=== PATIENT | male | born 1965 | race Caucasian/White ===

== ENCOUNTER 2021-03-10 07:01 | Observation (INO) | payer BC, OTHER ==
[2021-03-10] MEDS ORDERED: Aspirin 81 MG Tab.Chew PO ONE (07:26)
[2021-03-10] MEDS: Sodium Chloride 0.9% 10 ML Syringe FLUSH PRN ×2 (07:32→08:28)
[2021-03-10] MEDS ORDERED: Sodium Chloride 0.9% 10 ML Syringe FLUSH PRN (07:54)
--- NOTE | 2021-03-10 08:03 | EDM.PDOC ---
ED HPI GENERAL MEDICAL PROBLEM - General Chief Complaint: Chest Pain Stated Complaint: RT SIDE CHEST PAIN Time Seen by Provider: 03/10/21 07:41 Source of Information: Reports: Patient, Family History Limitations: Reports: No Limitations - History of Present Illness INITIAL COMMENTS - FREE TEXT/NARRATIVE: Patient presents with acute onset of chest pain started last night about 5:00. Sharp pain that was worse with laying flat worse with breathing occasional dry [place] cough at times felt clammy with it, hard to find a composition was able to sleep some but was very restless last night. Never had anything like this before not associated with any fevers chills or sweats no fainting spell no history of any underlying lung disease has a brother that of heart disease mother of heart disease but she was in her 80s, father of pancreatic cancer. No history of any smoking. Patient had Covid infection last year but not this year. Not associated with any vomiting but does have some slight nausea then eating anything. No gassy bloated belching no abdominal pain normal bowel movement no burning pain or blood in the urine no testicle pain. Feels like her ribs out. He then also to states that he is noted acute onset of swelling of left lower extremity. No fall trauma or injury never had a history of DVT or blood clots. He did have a knee replacement in the past but no other surgeries. Duration: Day(s): Severity: Moderate Improves with: Reports: Rest Worsens with: Reports: Breathing Associated Symptoms: Reports: Chest Pain, Cough, Diaphoresis, Loss of Appetite, Shortness of Breath. Denies: Fever/Chills, Headaches, Weakness Right Chest Pain Score (Numeric/FACES): 5 - Related Data Allergies Allergy/AdvReac Type Severity Reaction Status Date / Time No Known Allergies Allergy Verified 03/10/21 07:14 Home Meds: Home Meds . [No Known Home Meds] 03/10/21 [History] Past Medical History - Past Health History Medical/Surgical History: Denies Medical/Surgical History Social & Family History - Tobacco Use Tobacco Use Status *Q: Never Tobacco User Second Hand Smoke Exposure: No - Caffeine Use Caffeine Use: Reports: Coffee - Alcohol Use Days Per Week of Alcohol Use: 2 Number of Drinks Per Day: 2 Total Drinks Per Week: 4 - Recreational Drug Use Recreational Drug Use: No ED ROS GENERAL - Review of Systems Review Of Systems: See Below Constitutional: Reports: Diaphoresis, Decreased Appetite. Denies: Fever, Chills, Malaise, Weakness HEENT: Denies: Rhinitis, Throat Pain Respiratory: Reports: Shortness of Breath, Pleuritic Chest Pain, Cough Cardiovascular: Reports: Chest Pain, Dyspnea on Exertion, Lightheadedness. Den ies: Blood Pressure Problem, Orthopnea, Palpitations, PND, Syncope GI/Abdominal: Reports: Decreased Appetite, Nausea. Denies: Abdominal Pain, Diarrhea, Vomiting : Denies: Discharge, Dysuria, Flank Pain, Frequency, Hematuria, Pain Musculoskeletal: Reports: Other (For lower extremity swelling from the foot all the way up to the thigh). Denies: Neck Pain, Arm Pain, Back Pain Skin: Reports: No Symptoms Neurological: Reports: No Symptoms. Denies: Dizziness, Headache, Numbness, Paresthesia, Pre-Existing Deficit Psychiatric: Reports: No Symptoms ED EXAM, GENERAL - Physical Exam Exam: See Below Exam Limited By: No Limitations General Appearance: Alert, WD/WN, No Apparent Distress Throat/Mouth: Normal Inspection, Normal Lips, Normal Teeth Head: Atraumatic, Normocephalic Neck: Normal Inspection, Supple, Non-Tender, Full Range of Motion. No: Lymphadenopathy (L), Lymphadenopathy (R) Respiratory/Chest: No Respiratory Distress, Lungs Clear, Normal Breath Sounds, No Accessory Muscle Use, Other (Does have some pain on the right side with deep inspiration no rubs noted) Cardiovascular: Normal Peripheral Pulses, Regular Rate, Rhythm, No Murmur, No Rub, JVD Peripheral Pulses: 2+: Carotid (L), Carotid (R), Radial (L), Radial (R) GI/Abdominal: Normal Bowel Sounds, Soft, Non-Tender Back Exam: Normal Inspection, Full Range of Motion, Other (Old right trapezius tenderness). No: CVA Tenderness (L), CVA Tenderness (R) Extremities: Normal Range of Motion, Non-Tender, Normal Capillary Refill, Leg Pain (Lower extremity swollen and somewhat tender) Neurological: Alert, Oriented, CN II-XII Intact, No Motor/Sensory Deficits Psychiatric: Normal Affect, Normal Mood Skin Exam: Warm, Dry #1 Interpretation EKG Date: 03/10/21 Rhythm: NSR [place]: Normal QRS: Normal ST-T: Other QT: Normal (Reviewed EKG showing sinus rhythm rate of 78 DC 166 QRS is 95 QT corrected 428 patient has repolarization changes in the lateral leads otherwise some abnormal R wave progression no acute ischemic changes are noted.) Course - Vital Signs Last Recorded V/S: Last Vital Signs Temp 96.9 F 03/10/21 07:11 Pulse 84 03/10/21 07:11 Resp 15 03/10/21 07:11 BP 135/88 03/10/21 07:11 Pulse Ox 98 03/10/21 07:41 - Orders/Labs/Meds Orders: Active Orders 24 hr Category Date Time Status Cardiac Monitoring [RC] . DIRECTED Care 03/10/21 07:27 Active Communication Order [RC] ASDIRECTED Care 03/10/21 07:27 Active Communication Order [RC] ASDIRECTED Care 03/10/21 07:27 Active Oxygen Therapy [RC] ASDIRECTED Care 03/10/21 07:27 Active Peripheral IV Care [RC] . DIRECTED Care 03/10/21 07:27 Active Peripheral IV Care [RC] . DIRECTED Care 03/10/21 07:55 Ordered Sodium Chloride 0.9% [Normal Saline] 100 ml Med 03/10/21 08:15 Ordered IV ASDIRECTED Sodium Chloride 0.9% [Saline Flush] Med 03/10/21 07:26 Active 10 ml FLUSH ASDIRECTED PRN Sodium Chloride 0.9% [Saline Flush] Med 03/10/21 07:54 Ordered 10 ml FLUSH ASDIRECTED PRN Peripheral IV Insertion Adult [OM.PC] Stat Oth 03/10/21 07:27 Ordered Peripheral IV Insertion Adult [OM.PC] Stat Oth 03/10/21 07:55 Ordered Medication Orders Sodium Chloride (Normal Saline) 100 mls @ 60 mls/hr IV ASDIRECTED SCOTT Last Admin: 03/10/21 08:19 Dose: 60 mls/hr Documented by: Sodium Chloride (Sodium Chloride 0.9% 10 Ml Syringe) 10 ml FLUSH ASDIRECTED PRN PRN Reason: Keep Vein Open Last Admin: 03/10/21 07:32 Dose: 10 ml Documented by: BELINDA Sodium Chloride (Sodium Chloride 0.9% 10 Ml Syringe) 10 ml FLUSH ASDIRECTED PRN PRN Reason: Keep Vein Open Last Admin: 03/10/21 08:54 Dose: 10 ml Documented by: Labs: Laboratory Tests 03/10/21 03/10/21 03/10/21 Range/Units 07:10 07:10 07:10 WBC 11.25 H (4.23-9.07) K/mm3 RBC 4.69 (4.63-6.08) M/mm3 Hgb 13.3 L (13.7-17.5) gm/dl Hct 40.3 (40.1-51.0) % MCV 85.9 (79.0-92.2) fl MCH 28.4 (25.7-32.2) pg MCHC 33.0 (32.2-35.5) g/dl RDW Std Deviation 39.9 (35.1-43.9) fL Plt Count 332 (163-337) K/mm3 MPV 10.2 (9.4-12.3) fl Neut % (Auto) 77.5 H (34.0-67.9) % Lymph % (Auto) 10.9 L (21.8-53.1) % Bacon % (Auto) 8.8 (5.3-12.2) % Eos % (Auto) 2.3 (0.8-7.0) Baso % (Auto) 0.3 (0.1-1.2) % Neut # (Auto) 8.72 H (1.78-5.38) K/mm3 Lymph # (Auto) 1.23 L (1.32-3.57) K/mm3 Bacon # (Auto) 0.99 H (0.30-0.82) K/mm3 Eos # (Auto) 0.26 (0.04-0.54) K/mm3 Baso # (Auto) 0.03 (0.01-0.08) K/mm3 PT 10.8 (9.7-12.0) SECONDS INR 0.97 D-Dimer, Quantitative 6.03 H (0.19-0.50) mg/L Sodium 137 (136-145) mEq/L Potassium 4.4 (3.5-5.1) mEq/L Chloride 98 (98-107) mEq/L Carbon Dioxide 28 (21-32) mEq/L Anion Gap 15.4 H (5-15) BUN 18 (7-18) mg/dL Creatinine 1.2 (0.7-1.3) mg/dL Est Cr Clr Drug Dosing 80.45 mL/min Estimated GFR (MDRD) > 60 (>60) mL/min BUN/Creatinine Ratio 15.0 (14-18) Glucose 128 H (70-99) mg/dL Calcium 9.0 (8.5-10.1) mg/dL Magnesium 1.8 (1.8-2.4) mg/dL Total Bilirubin 0.6 (0.2-1.0) mg/dL AST 21 (15-37) U/L ALT 33 (16-63) U/L Alkaline Phosphatase 102 (46-116) U/L Troponin I < 0.017 (0.00-0.056) ng/mL C-Reactive Protein (<1.0) mg/dL Total Protein 7.5 (6.4-8.2) g/dl Albumin 3.6 (3.4-5.0) g/dl Globulin 3.9 gm/dL Albumin/Globulin Ratio 0.9 L (1-2) Influenza Type A RNA (NEGATIVE) Influenza Type B RNA (NEGATIVE) SARS-CoV-2 RNA (ANDREEA) (NEGATIVE) 03/10/21 03/10/21 Range/Units 07:10 07:41 WBC (4.23-9.07) K/mm3 RBC (4.63-6.08) M/mm3 Hgb (13.7-17.5) gm/dl Hct (40.1-51.0) % MCV (79.0-92.2) fl MCH (25.7-32.2) pg MCHC (32.2-35.5) g/dl RDW Std Deviation (35.1-43.9) fL Plt Count (163-337) K/mm3 MPV (9.4-12.3) fl Neut % (Auto) (34.0-67.9) % Lymph % (Auto) (21.8-53.1) % [place] % (Auto) (5.3-12.2) % Eos % (Auto) (0.8-7.0) Baso % (Auto) (0.1-1.2) % Neut # (Auto) (1.78-5.38) K/mm3 Lymph # (Auto) (1.32-3.57) K/mm3 [place] # (Auto) (0.30-0.82) K/mm3 Eos # (Auto) (0.04-0.54) K/mm3 Baso # (Auto) (0.01-0.08) K/mm3 PT (9.7-12.0) SECONDS INR D-Dimer, Quantitative (0.19-0.50) mg/L Sodium (136-145) mEq/L Potassium (3.5-5.1) mEq/L Chloride (98-107) mEq/L Carbon Dioxide (21-32) mEq/L Anion Gap (5-15) BUN (7-18) mg/dL Creatinine (0.7-1.3) mg/dL Est Cr Clr Drug Dosing mL/min Estimated GFR (MDRD) (>60) mL/min BUN/Creatinine Ratio (14-18) Glucose (70-99) mg/dL Calcium (8.5-10.1) mg/dL Magnesium (1.8-2.4) mg/dL Total Bilirubin (0.2-1.0) mg/dL AST (15-37) U/L ALT (16-63) U/L Alkaline Phosphatase (46-116) U/L Troponin I (0.00-0.056) ng/mL C-Reactive Protein 16.2 H* (<1.0) mg/dL Total Protein (6.4-8.2) g/dl Albumin (3.4-5.0) g/dl Globulin gm/dL Albumin/Globulin Ratio (1-2) Influenza Type A RNA Negative (NEGATIVE) Influenza Type B RNA Negative (NEGATIVE) SARS-CoV-2 RNA (ANDREEA) Negative (NEGATIVE) White blood cell count 11,250 hemoglobin 13.3 medical 40 platelet count is 332,077% neutrophils INR 0.97 D-dimer 6 blood sodium is 137 potassium 4.4 chloride 98 CO2 is 28 anion gap 15.4 glucose is 128 creatinine clearance is 80 liver function tests are normal CRP is 16 troponin is negative influenza and Covid test are negative. Meds: Medications Generic Name Dose Route Start Last Admin Trade Name Freq PRN Reason Stop Dose Admin Sodium Chloride 100 mls @ 60 mls/hr 03/10/21 08:15 03/10/21 08:19 Normal Saline IV 60 mls/hr ASDIRECTED SCOTT Administration Sodium Chloride 10 ml 03/10/21 07:26 03/10/21 08:28 Sodium Chloride 0.9% 10 Ml Syringe FLUSH 10 ml ASDIRECTED PRN Administration Keep Vein Open Sodium Chloride 10 ml 03/10/21 07:54 03/10/21 08:54 Sodium Chloride 0.9% 10 Ml Syringe FLUSH 10 ml ASDIRECTED PRN Administration Keep Vein Open Discontinued Medications Generic Name Dose Route Start Last Admin Trade Name Freq PRN Reason Stop Dose Admin Aspirin 324 mg 03/10/21 07:26 03/10/21 07:32 Aspirin 81 Mg Tab.Chew PO 03/10/21 07:27 324 mg ONETIME ONE Administration Enoxaparin Sodium 120 mg 03/10/21 08:46 03/10/21 08:53 Enoxaparin 120 Mg/0.8 Ml Syringe SUBCUT 03/10/21 08:47 120 mg ONETIME ONE Administration Sodium Chloride 1,000 mls @ 999 mls/hr 03/10/21 08:05 03/10/21 08:28 Normal Saline IV 03/10/21 09:05 999 mls/hr ONETIME ONE Administration Iopamidol 100 ml 03/10/21 08:04 03/10/21 08:19 Iopamidol 755 Mg/Ml 100 Ml Bottle IVPUSH 03/10/21 08:05 100 ml ONETIME ONE Administration Morphine Sulfate 4 mg 03/10/21 08:46 03/10/21 08:52 Morphine 4 Mg/Ml Syringe IVPUSH 03/10/21 08:47 4 mg ONETIME ONE Administration Sodium Chloride 10 ml 03/10/21 08:04 03/10/21 08:19 Sodium Chloride 0.9% 10 Ml Syringe FLUSH 03/10/21 08:05 10 ml ONETIME ONE Administration - Radiology Interpretation Free Text/Narrative:: CT scan results reviewed with the radiologist and shows the filling defects are seen in the distal right main pulmonary artery segmental and subsegmental branches right lower lung compatible with fairly extensive pulmonary emboli thoracic gaiter order is no aneurysm mediastinum is negative pericardial thickening is negative upper abdominal structures are nothing acute patchy increased density right lung base small right-sided pleural effusion mostly impression with extensive right lower pulmonary emboli parenchymal density in the right lower lung base as well as in the left lung base rule out pneumonia small right pleural effusion noted. CT Results Date: 03/10/21 CT Results Time: 07:50 - Re-Assessments/Exams Free Text/Narrative Re-Assessment/Exam: 03/10/21 08:04 Seen examined and evaluated concern for PE acute coronary syndrome cholecystitis ascending cholangitis seems less likely ascending thoracic aorta, doubt aneurysm or dissection, may be pneumonia. Left lower extremity rule out DVT. 03/10/21 08:51 Patient seems to have more pain hard to find a comfortable position still awaiting the ultrasound was given a shot of Lovenox for now. Will decide whether patient may benefit from hospitalization for further evaluation of etiology of DVT PE. His troponin is negative seems less likely heart strain. Signs remain stable. 03/10/21 09:46 Patient does have a lower extremity DVT on the left it does not show a large amount of burden however does show extensive left lower extremity vein thrombosis from the proximal superficial femoral vein continue distal through the posterior tibial and peroneal veins. Does not appear to have any again obvious right heart strain no other labs reviewed with the patient and family at the bedside. Given dose of Lovenox however will start him on Eliquis. 03/10/21 10:22 More discussion with the hospitalist on-call felt the patient would probably benefit from admission and better evaluation. admit the patient have given him a dose of Lovenox for now we will let him assume care for further evaluation and underlying work-up evaluation for his PE DVT. Departure - Departure Time of Disposition: 10:20 Disposition: Admitted As Inpatient 68 Condition: Fair Clinical Impression: Pulmonary embolism on right Referrals: PCP,None [Primary Care Provider] - Forms: ED Department Discharge Sepsis Event Note (ED) - Focused Exam Vital Signs: Vital Signs Temp Pulse Resp BP Pulse Ox Pulse Ox 03/10/21 07:41 98 03/10/21 07:11 96.9 F 84 15 135/88 97 - My Orders Last 24 Hours: My Active Orders 03/10/21 07:26 Sodium Chloride 0.9% [Saline Flush] 10 ml FLUSH ASDIRECTED PRN 03/10/21 07:27 Cardiac Monitoring [RC] . DIRECTED Communication Order [RC] ASDIRECTED Communication Order [RC] ASDIRECTED Oxygen Therapy [RC] ASDIRECTED Peripheral IV Care [RC] . DIRECTED Peripheral IV Insertion Adult [OM.PC] Stat 03/10/21 07:54 Sodium Chloride 0.9% [Saline Flush] 10 ml FLUSH ASDIRECTED PRN 03/10/21 07:55 Peripheral IV Care [RC] . DIRECTED Peripheral IV Insertion Adult [OM.PC] Stat 03/10/21 08:15 Sodium Chloride 0.9% [Normal Saline] 100 ml IV ASDIRECTED - Assessment/Plan Last 24 Hours: My Active Orders 03/10/21 07:26 Sodium Chloride 0.9% [Saline Flush] 10 ml FLUSH ASDIRECTED PRN 03/10/21 07:27 Cardiac Monitoring [RC] . DIRECTED Communication Order [RC] ASDIRECTED Communication Order [RC] ASDIRECTED Oxygen Therapy [RC] ASDIRECTED Peripheral IV Care [RC] . DIRECTED Peripheral IV Insertion Adult [OM.PC] Stat 03/10/21 07:54 Sodium Chloride 0.9% [Saline Flush] 10 ml FLUSH ASDIRECTED PRN 03/10/21 07:55 Peripheral IV Care [RC] . DIRECTED Peripheral IV Insertion Adult [OM.PC] Stat 03/10/21 08:15 Sodium Chloride 0.9% [Normal Saline] 100 ml IV ASDIRECTED
[2021-03-10] MEDS ORDERED: Sodium Chloride 0.9% 10 ML Syringe FLUSH ONE (08:04)
[2021-03-10] MEDS ORDERED: Iopamidol 755 Mg/ML 100 ML Bottle IVPUSH ONE (08:04)
[2021-03-10] MEDS ORDERED: Sodium Chloride 0.9% 1,000 ML IV ONE (08:05)
[2021-03-10] MEDS ORDERED: Sodium Chloride 0.9% 100 ML IV SCH (08:15)
[2021-03-10 08:26] LABS: CORONAVIRUS COVID-19 NAA NEGATIVE (NEGATIVE)
--- NOTE | 2021-03-10 08:33 | CR ---
Chest: Portable view of the chest was obtained. Comparison: No prior chest imaging is available. Heart size and mediastinum are normal. Lungs are clear with no acute parenchymal change. Bony structures show nothing acute. Impression: 1. Nothing acute is seen on portable chest x-ray. Diagnostic code #1
--- NOTE | 2021-03-10 08:40 | CT ---
CT chest Technique: Multiple axial sections were obtained from above the lung apices inferiorly through the lung bases. Intravenous contrast was utilized. Study has been performed as a pulmonary angiogram protocol. Comparison: Chest x-ray performed earlier on the same day (7:39 AM). Findings: Filling defects are seen within the distal right main pulmonary artery, segmental and subsegmental branches of the right lower lung. Findings are compatible with fairly extensive pulmonary emboli within this region. Thoracic aorta shows no aneurysm. Mediastinum shows no adenopathy. No pericardial thickening is seen. No axillary adenopathy is noted. Visualized upper abdominal structures show nothing acute. Lung window settings were reviewed. Patchy increased density is seen within the right lung base. Mild increased density is seen within the left lung base. Small right-sided pleural effusion is also noted. Bone window settings were reviewed. No acute osseous abnormality is appreciated. Impression: 1. Fairly extensive right lower lung pulmonary emboli as described above. 2. Parenchymal density within the right lung base as well as minimal parenchymal density within the left lung base. These findings could relate to pulmonary embolism, please exclude any symptoms of pneumonia. 3. Small right-sided pleural effusion is seen. Diagnostic code #5
[2021-03-10] MEDS ORDERED: Morphine 4 MG/ML Syringe IVPUSH ONE (08:46)
[2021-03-10] MEDS ORDERED: Enoxaparin 120 MG/0.8 ML Syringe SUBCUT ONE (08:46)
--- NOTE | 2021-03-10 09:01 | US ---
Left lower extremity deep venous ultrasound: Duplex and color Doppler evaluation was obtained of the left common femoral, proximal greater saphenous, superficial femoral, popliteal, posterior tibial and peroneal veins. Right common femoral vein was also evaluated. Comparison: Prior CT pulmonary angiogram performed earlier on the same day (8:06 AM), no prior venous imaging is available. Findings: There is intraluminal material being seen within the superficial femoral vein, popliteal vein, posterior tibial vein and peroneal vein. Common femoral veins on both sides are patent. Impression: 1. Extensive left lower extremity deep venous thrombosis from the proximal superficial femoral vein and continuing distally through the posterior tibial and peroneal veins. Diagnostic code #5
--- NOTE | 2021-03-10 11:55 | PCM.HP.2 ---
H&P History of Present Illness - General Date of Service: 03/10/21 Admit Problem/Dx: Admission Diagnosis/Problem Admission Diagnosis/Problem Pulmonary embolism Source of Information: Patient, Old Records, Provider, RN, RN Notes Reviewed, Significant Other History Limitations: Reports: No Limitations - History of Present Illness Initial Comments - Free Text/Narative: This is a 55-year-old male who presents to our ED on the morning of 03-10-2021 with chest pain. He reports this started around 1700 the night before. States it is worse with breathing he does have an occasional dry cough. Denies any fevers, chills, sweats, syncopal episodes, or prior similar episodes. No prior heart or lung conditions. Denies any smoking history. Reports he had Covid infection last year but no issues this year. Reports mild nausea but no vomiting. No abdominal pain, urinary symptoms, or changes in bowel habits. He reports he feels like he has a rib out. He also reports acute onset left lower extremity swelling. No recent trauma. No history of VTE. Reports prior knee replacement but no other surgeries. In the ED twelve-lead EKG was obtained showing a sinus rhythm at 78 bpm with repolarization changes in the lateral leads and abnormal R wave progression. No ischemic changes noted. Temp is 96.9. Pulse 84. Respirations 15. Blood pressure 135/88. Pulse ox 98% on room air. Labs are obtained showing a WBC of 11.25. Hemoglobin 13.3. Platelet 332,000. Neutrophils are elevated at 77.5. PT is 10.8. INR 0.97. D-dimer is very high at 6.03. Sodium 137. Potassium 4.4. Chloride 98. Carbon dioxide 28. Anion gap is 15.4. BUN is 18. Creatinine 1.2. GFR greater than 60. Glucose 128. Calcium 9.0. Magnesium 1.8. Bilirubin 0.6. AST is 21, ALT 33, alkaline phosphatase 102. Troponin less than 0.017. Albumin is 3.6. CRP is elevated at 16.2. Influenza a and B are both negative. SARS-CoV-2 RNA is negative. He is given 324 mg aspirin and 4 mg of morphine. Chest x-ray is obtained showing nothing acute. CTA of the chest is obtained showing fairly extensive right lower lung pulmonary emboli as described above. There is also parenchymal density within the right lung base as well as minimal parenchymal density within the left lung base. These findings could relate to pulmonary embolism, please exclude any symptoms of pneumonia. Small right-sided pleural effusion is also seen. Bilateral lower extremity ultrasound is obtained and shows extensive left lower extremity deep venous thrombosis from the proximal superficial femoral vein and continued distally through the posterior tibial and peroneal veins. He is given 120 mg enoxaparin injection. Denies any past medical history or prior home medications. He is a full code. He does not have a PCP provider. He subsequently admitted to the floor observation status on telemetry for further work-up and monitoring of his PE and DVT. Right Chest Pain Score (Numeric/FACES): 5 - Related Data Allergies/Adverse Reactions: Allergies Allergy/AdvReac Type Severity Reaction Status Date / Time No Known Allergies Allergy Verified 03/10/21 15:04 Home Medications: Home Meds . [No Known Home Meds] 03/10/21 [History] Past Medical History - Past Health History Medical/Surgical History: Denies Medical/Surgical History Social & Family History - Tobacco Use Tobacco Use Status *Q: Never Tobacco User Second Hand Smoke Exposure: No - Caffeine Use Caffeine Use: Reports: Coffee - Alcohol Use Days Per Week of Alcohol Use: 2 Number of Drinks Per Day: 2 Total Drinks Per Week: 4 - Recreational Drug Use Recreational Drug Use: No H&P Review of Systems - Review of Systems: Review Of Systems: See Below General: Reports: No Symptoms. Denies: Fever, Chills, Malaise, Weakness, Fatigue HEENT: Reports: No Symptoms. Denies: Headaches, Visual Changes Pulmonary: Reports: Shortness of Breath, Pleuritic Chest Pain, Cough. Denies: Wheezing, Sputum Cardiovascular: Reports: Chest Pain, Dyspnea on Exertion, Orthopnea, Edema (left lower extremity ). Denies: Palpitations, Syncope, Claudication Gastrointestinal: Reports: No Symptoms. Denies: Abdominal Pain, Constipation, Diarrhea, Hematemesis, Hematochezia, Melena, Nausea, Stool Incontinence, Vomiting Genitourinary: Reports: No Symptoms. Denies: Frequency, Burning, Pain Musculoskeletal: Reports: No Symptoms Skin: Reports: No Symptoms. Denies: Cyanosis Psychiatric: Reports: No Symptoms Neurological: Reports: No Symptoms. Denies: Confusion Hematologic/Lymphatic: Reports: No Symptoms. Denies: Anemia, Easy Bleeding, Easy Bruising Immunologic: Reports: No Symptoms Exam - Exam Exam: See Below - Vital Signs Vital Signs: Last Vital Signs Temp 96.9 F 03/10/21 07:11 Pulse 84 03/10/21 07:11 Resp 15 03/10/21 07:11 BP 135/88 03/10/21 07:11 Pulse Ox 98 03/10/21 07:41 Weight: 280 lb - Exam Quality Assessment: DVT Prophylaxis. No: Supplemental Oxygen, Urinary Catheter General: Alert, Oriented, Cooperative. No: Mild Distress HEENT: Conjunctiva Clear, EACs Clear, Mucosa Moist & [place], Posterior Pharynx Clear Neck: Supple, Trachea Midline Lungs: Clear to Auscultation, Normal Respiratory Effort Cardiovascular: Regular Rate, Regular Rhythm GI/Abdominal Exam: Normal Bowel Sounds, Soft, Non-Tender, No Distention (Male) Exam: Deferred Rectal (Males) Exam: Deferred Back Exam: Normal Inspection, Full Range of Motion Extremities: Normal Inspection, Normal Range of Motion, Normal Capillary Refill, Pedal Edema (Left sided - 2+), Leg Pain (Left lower extremity ) Skin: Warm, Dry, Intact Neurological: Cranial Nerves Intact (Grossly ) Neuro Extensive - Mental Status: Alert, Oriented x3, Normal Mood/Affect - Patient Data Lab Results Last 24 hrs: Laboratory Results - last 24 hr 03/10/21 03/10/21 03/10/21 Range/Units 07:10 07:10 07:10 WBC 11.25 H (4.23-9.07) K/mm3 RBC 4.69 (4.63-6.08) M/mm3 Hgb 13.3 L (13.7-17.5) gm/dl Hct 40.3 (40.1-51.0) % MCV 85.9 (79.0-92.2) fl MCH 28.4 (25.7-32.2) pg MCHC 33.0 (32.2-35.5) g/dl RDW Std Deviation 39.9 (35.1-43.9) fL Plt Count 332 (163-337) K/mm3 MPV 10.2 (9.4-12.3) fl Neut % (Auto) 77.5 H (34.0-67.9) % Lymph % (Auto) 10.9 L (21.8-53.1) % [place] % (Auto) 8.8 (5.3-12.2) % Eos % (Auto) 2.3 (0.8-7.0) Baso % (Auto) 0.3 (0.1-1.2) % Neut # (Auto) 8.72 H (1.78-5.38) K/mm3 Lymph # (Auto) 1.23 L (1.32-3.57) K/mm3 [place] # (Auto) 0.99 H (0.30-0.82) K/mm3 Eos # (Auto) 0.26 (0.04-0.54) K/mm3 Baso # (Auto) 0.03 (0.01-0.08) K/mm3 PT 10.8 (9.7-12.0) SECONDS INR 0.97 D-Dimer, Quantitative 6.03 H (0.19-0.50) mg/L Sodium 137 (136-145) mEq/L Potassium 4.4 (3.5-5.1) mEq/L Chloride 98 (98-107) mEq/L Carbon Dioxide 28 (21-32) mEq/L Anion Gap 15.4 H (5-15) BUN 18 (7-18) mg/dL Creatinine 1.2 (0.7-1.3) mg/dL Est Cr Clr Drug Dosing 80.45 mL/min Estimated GFR (MDRD) > 60 (>60) mL/min BUN/Creatinine Ratio 15.0 (14-18) Glucose 128 H (70-99) mg/dL Calcium 9.0 (8.5-10.1) mg/dL Magnesium 1.8 (1.8-2.4) mg/dL Total Bilirubin 0.6 (0.2-1.0) mg/dL AST 21 (15-37) U/L ALT 33 (16-63) U/L Alkaline Phosphatase 102 (46-116) U/L Troponin I < 0.017 (0.00-0.056) ng/mL C-Reactive Protein (<1.0) mg/dL Total Protein 7.5 (6.4-8.2) g/dl Albumin 3.6 (3.4-5.0) g/dl Globulin 3.9 gm/dL Albumin/Globulin Ratio 0.9 L (1-2) Influenza Type A RNA (NEGATIVE) Influenza Type B RNA (NEGATIVE) SARS-CoV-2 RNA (ANDREEA) (NEGATIVE) 03/10/21 03/10/21 Range/Units 07:10 07:41 WBC (4.23-9.07) K/mm3 RBC (4.63-6.08) M/mm3 Hgb (13.7-17.5) gm/dl Hct (40.1-51.0) % MCV (79.0-92.2) fl MCH (25.7-32.2) pg MCHC (32.2-35.5) g/dl RDW Std Deviation (35.1-43.9) fL Plt Count (163-337) K/mm3 MPV (9.4-12.3) fl Neut % (Auto) (34.0-67.9) % Lymph % (Auto) (21.8-53.1) % [place] % (Auto) (5.3-12.2) % Eos % (Auto) (0.8-7.0) Baso % (Auto) (0.1-1.2) % Neut # (Auto) (1.78-5.38) K/mm3 Lymph # (Auto) (1.32-3.57) K/mm3 [place] # (Auto) (0.30-0.82) K/mm3 Eos # (Auto) (0.04-0.54) K/mm3 Baso # (Auto) (0.01-0.08) K/mm3 PT (9.7-12.0) SECONDS INR D-Dimer, Quantitative (0.19-0.50) mg/L Sodium (136-145) mEq/L Potassium (3.5-5.1) mEq/L Chloride (98-107) mEq/L Carbon Dioxide (21-32) mEq/L Anion Gap (5-15) BUN (7-18) mg/dL Creatinine (0.7-1.3) mg/dL Est Cr Clr Drug Dosing mL/min Estimated GFR (MDRD) (>60) mL/min BUN/Creatinine Ratio (14-18) Glucose (70-99) mg/dL Calcium (8.5-10.1) mg/dL Magnesium (1.8-2.4) mg/dL Total Bilirubin (0.2-1.0) mg/dL AST (15-37) U/L ALT (16-63) U/L Alkaline Phosphatase (46-116) U/L Troponin I (0.00-0.056) ng/mL C-Reactive Protein 16.2 H* (<1.0) mg/dL Total Protein (6.4-8.2) g/dl Albumin (3.4-5.0) g/dl Globulin gm/dL Albumin/Globulin Ratio (1-2) Influenza Type A RNA Negative (NEGATIVE) Influenza Type B RNA Negative (NEGATIVE) SARS-CoV-2 RNA (ANDREEA) Negative (NEGATIVE) Result Diagrams: 03/10/21 07:10 03/10/21 07:10 Sepsis Event Note - Focused Exam Vital Signs: Vital Signs Temp Pulse Resp BP Pulse Ox Pulse Ox 03/10/21 07:41 98 03/10/21 07:11 96.9 F 84 15 135/88 97 - Problem List (1) Left leg DVT SNOMED Code(s): 491292699 ICD Code: I82.402 - ACUTE EMBOLISM AND THOMBOS UNSP DEEP VEINS OF L LOW EXTREM Status: Acute Priority: High Current Visit: Yes Qualifiers: Affected thrombotic vein of extremity: unspecified vein of extremity Chronicity: acute Qualified Code(s): I82.402 - Acute embolism and thrombosis of unspecified deep veins of left lower extremity (2) Dyspnea SNOMED Code(s): 406324735 ICD Code: R06.00 - DYSPNEA, UNSPECIFIED Status: Acute Priority: High Current Visit: Yes Qualifiers: Dyspnea type: dyspnea on exertion Qualified Code(s): R06.00 - Dyspnea, unspecified (3) Pulmonary embolism on right SNOMED Code(s): 24534672 ICD Code: I26.99 - OTHER PULMONARY EMBOLISM WITHOUT ACUTE COR PULMONALE Status: Acute Priority: High Current Visit: Yes (4) Leukocytosis SNOMED Code(s): 010633769, 621016072 ICD Code: D72.829 - ELEVATED WHITE BLOOD CELL COUNT, UNSPECIFIED Status: Acute Priority: Medium Current Visit: Yes Qualifiers: Leukocytosis type: unspecified Qualified Code(s): D72.829 - Elevated white blood cell count, unspecified (5) Elevated C-reactive protein (CRP) SNOMED Code(s): 236801345134616 ICD Code: R79.82 - ELEVATED C-REACTIVE PROTEIN (CRP) Status: Acute Priority: Medium Current Visit: Yes Problem List Initiated/Reviewed/Updated: Yes Orders Last 24hrs: Active Orders 24 hr Category Date Time Status Admission Status [Patient Status] [ADT] Routine ADT 03/10/21 11:50 Active Cardiac Monitoring [RC] . DIRECTED Care 03/10/21 07:27 Active Cardiac Monitoring [RC] . DIRECTED Care 03/10/21 11:50 Active Communication Order [RC] ASDIRECTED Care 03/10/21 07:27 Active Communication Order [RC] ASDIRECTED Care 03/10/21 07:27 Active Oxygen Therapy [RC] ASDIRECTED Care 03/10/21 07:27 Active Peripheral IV Care [RC] . DIRECTED Care 03/10/21 07:27 Active Peripheral IV Care [RC] . DIRECTED Care 03/10/21 07:55 Active Echo 2D wo Cont [US] Routine Exams 03/10/21 11:54 Ordered PROCALCITONIN [REF] Routine Lab 03/10/21 11:53 Ordered Sodium Chloride 0.9% [Normal Saline] 100 ml Med 03/10/21 08:15 Active IV ASDIRECTED Sodium Chloride 0.9% [Saline Flush] Med 03/10/21 07:26 Active 10 ml FLUSH ASDIRECTED PRN Sodium Chloride 0.9% [Saline Flush] Med 03/10/21 07:54 Active 10 ml FLUSH ASDIRECTED PRN Peripheral IV Insertion Adult [OM.PC] Stat Oth 03/10/21 07:27 Ordered Peripheral IV Insertion Adult [OM.PC] Stat Oth 03/10/21 07:55 Ordered Code Status [Resuscitation Status] Stat Resus Stat 03/10/21 11:51 Ordered Medication Orders Sodium Chloride (Normal Saline) 100 mls @ 60 mls/hr IV ASDIRECTED SCOTT Last Admin: 03/10/21 08:19 Dose: 60 mls/hr Documented by: TERRA Sodium Chloride (Sodium Chloride 0.9% 10 Ml Syringe) 10 ml FLUSH ASDIRECTED PRN PRN Reason: Keep Vein Open Last Admin: 03/10/21 08:28 Dose: 10 ml Documented by: Admin: 03/10/21 07:32 Dose: 10 ml Documented by: BELINDA Sodium Chloride (Sodium Chloride 0.9% 10 Ml Syringe) 10 ml FLUSH ASDIRECTED PRN PRN Reason: Keep Vein Open Last Admin: 03/10/21 08:54 Dose: 10 ml Documented by: HENOK Assessment/Plan Comment:: Pulmonary embolism on right Dyspnea * Telemetry * Continuous pulse oximetry * Obtain echocardiogram to rule out right heart strain * Daily labs * 1mg/kg lovenox tonight * Start 10mg BID Eliquis tomorrow AM * O2 as needed to keep oxygen saturations >90% * Pain medications PRN as ordered Left leg DVT * Lovenox/Eliquis as above Leukocytosis Elevated CRP * Likely stress related * Check procalcitonin * Monitor labs Code status: Full code PCP: None - needs to establish DVT prophylaxis: Lovenox transitioning to Eliquis as above Disposition: Patient admitted observation status for monitoring and treatment of right pulmonary embolism and left lower extremity DVT. Likely discharge in 1 to 2 days. Overall good prognosis. - Mortality Measure Prognosis:: Good
[2021-03-10] MEDS ORDERED: Ondansetron 4 MG/2 ML SDV IV PRN (14:02)
[2021-03-10] MEDS ORDERED: Acetaminophen 325 MG Tab PO PRN (14:02)
[2021-03-10] MEDS ORDERED: oxyCODONE 5 MG Tab PO PRN (15:03)
[2021-03-10] MEDS ORDERED: Morphine 2 MG/ML SYRINGE IVPUSH PRN (15:03)
[2021-03-10] MEDS ORDERED: traZODone 50 MG Tab PO ONE (20:33)
[2021-03-10] MEDS ORDERED: Enoxaparin 150 MG/1 ML Syringe SUBCUT ONE (21:00)
[2021-03-11] MEDS ORDERED: Apixaban 5 MG Tab PO SCH (09:00)
--- NOTE | 2021-03-11 11:32 | PCM.DCSUM1 ---
Discharge Summary - Hospital Course HPI Initial Comments: This is a 55-year-old male who presents to our ED on the morning of 03-10-2021 with chest pain. He reports this started around 1700 the night before. States it is worse with breathing he does have an occasional dry cough. Denies any fevers, chills, sweats, syncopal episodes, or prior similar episodes. No prior heart or lung conditions. Denies any smoking history. Reports he had Covid infection last year but no issues this year. Reports mild nausea but no vomiting. No abdominal pain, urinary symptoms, or changes in bowel habits. He reports he feels like he has a rib out. He also reports acute onset left lower extremity swelling. No recent trauma. No history of VTE. Reports prior knee replacement but no other surgeries. In the ED twelve-lead EKG was obtained showing a sinus rhythm at 78 bpm with repolarization changes in the lateral leads and abnormal R wave progression. No ischemic changes noted. Temp is 96.9. Pulse 84. Respirations 15. Blood pressure 135/88. Pulse ox 98% on room air. Labs are obtained showing a WBC of 11.25. Hemoglobin 13.3. Platelet 332,000. Neutrophils are elevated at 77.5. PT is 10.8. INR 0.97. D-dimer is very high at 6.03. Sodium 137. Potassium 4.4. Chloride 98. Carbon dioxide 28. Anion gap is 15.4. BUN is 18. Creatinine 1.2. GFR greater than 60. Glucose 128. Calcium 9.0. Magnesium 1.8. Bilirubin 0.6. AST is 21, ALT 33, alkaline phosphatase 102. Troponin less than 0.017. Albumin is 3.6. CRP is elevated at 16.2. Influenza a and B are both negative. SARS-CoV-2 RNA is negative. He is given 324 mg aspirin and 4 mg of morphine. Chest x-ray is obtained showing nothing acute. CTA of the chest is obtained showing fairly extensive right lower lung pulmonary emboli as described above. There is also parenchymal density within the right lung base as well as minimal parenchymal density within the left lung base. These findings could relate to pulmonary embolism, please exclude any symptoms of pneumonia. Small right-sided pleural effusion is also seen. Bilateral lower extremity ultrasound is obtained and shows extensive left lower extremity deep venous thrombosis from the proximal superficial femoral vein and continued distally through the posterior tibial and peroneal veins. He is given 120 mg enoxaparin injection. Denies any past medical history or prior home medications. He is a full code. He does not have a PCP provider. He subsequently admitted to the floor observation status on telemetry for further work-up and monitoring of his PE and DVT. Diagnosis: Stroke: No - Discharge Data Discharge Date: 03/11/21 (Admit date: 03/10/2021) Discharge Disposition: Home, Self-Care 01 Condition: Good - Referral to Home Health Primary Care Physician: Jose Jaeger MD - Discharge Diagnosis/Problem(s) (1) Left leg DVT SNOMED Code(s): 824505991 ICD Code: I82.402 - ACUTE EMBOLISM AND THOMBOS UNSP DEEP VEINS OF L LOW EXTREM Status: Acute Priority: High Current Visit: Yes Qualifiers: Affected thrombotic vein of extremity: unspecified vein of extremity Chronicity: acute Qualified Code(s): I82.402 - Acute embolism and thrombosis of unspecified deep veins of left lower extremity (2) Dyspnea SNOMED Code(s): 309636273 ICD Code: R06.00 - DYSPNEA, UNSPECIFIED Status: Acute Priority: High Current Visit: Yes Qualifiers: Dyspnea type: dyspnea on exertion Qualified Code(s): R06.00 - Dyspnea, unspecified (3) Pulmonary embolism on right SNOMED Code(s): 47992942 ICD Code: I26.99 - OTHER PULMONARY EMBOLISM WITHOUT ACUTE COR PULMONALE Status: Acute Priority: High Current Visit: Yes (4) Leukocytosis SNOMED Code(s): 963718763, 697943023 ICD Code: D72.829 - ELEVATED WHITE BLOOD CELL COUNT, UNSPECIFIED Status: Resolved Priority: Medium Current Visit: Yes Qualifiers: Leukocytosis type: unspecified Qualified Code(s): D72.829 - Elevated white blood cell count, unspecified (5) Elevated C-reactive protein (CRP) SNOMED Code(s): 793942207886613 ICD Code: R79.82 - ELEVATED C-REACTIVE PROTEIN (CRP) Status: Acute Priority: Medium Current Visit: Yes - Patient Summary/Data Labs Pending at D/C: Procalcitonin Recommended Follow-up Testing/Procedures: Follow-up with primary care provider within 7 to 10 days of discharge, sooner if needed. * Patient discharged on 15 mg twice daily Xarelto and transitioning to 20 mg daily Xarelto on 04/01/2021. Prescription sent for both. * Consider work-up for coagulopathies. * Recommend recheck CBC, CMP, and magnesium in follow-up. Hospital Course: 55-year-old male admitted to the floor on 03/10/2021 with a right-sided pulmonary embolism and left lower extremity DVT. Patient received 1 mg/kg of Lovenox yesterday in the ED and on the floor he was transition to Eliquis 10 mg this morning. Plan was to discharge the patient on Eliquis however his insurance company will not cover the loading dosing. He will transition to Xarelto tonight 15 mg twice daily for 21 days and then from there switch to Xarelto 20 mg daily. He has had no respiratory or cardiac symptoms. Left lower extremity does remain somewhat swollen. Echocardiogram was obtained showing 1. Left ventricular ejection fraction, by visual estimation is 55 to 60%. 2. Normal pattern of LV diastolic filling. 3. Normal right ventricular systolic function. 4. Right ventricular size is normal. 5. The right ventricle was not well visualized. 6. No aortic valve stenosis. 7. No evidence of mitral valve regurgitation. 8. Mild tricuspid valve regurgitation. 9. The right ventricular systolic pressure is mildly elevated at 44.2 mmHg. 10. No regional wall motion abnormalities. Patient did have leukocytosis on admission which is likely stress related. No other signs of infection. Procalcitonin is still pending. Patient does not have any prior medications. Recommend follow-up with primary care provider within 7 to 10 days of discharge, sooner if needed. Consider work-up for coagulopathies at that time. Recommend recheck CBC, CMP, and magnesium in follow-up. Patient discharged home today. - Patient Instructions Diet: Usual Diet as Tolerated Activity: As Tolerated Driving: Do Not Drive (today) Showering/Bathing: May Shower Notify Provider of: Fever, Increased Pain, Nausea and/or Vomiting Other/Special Instructions: Follow-up with primary care provider within 7 to 10 days of discharge, sooner if needed. You were prescribed a blood thinner called rivaroxaban (Xarelto). You received your first dose while here. You should take 15 mg twice a day for a total of 21 days. Starting on 04-01-2021 you should transition to 20 mg daily. You will likely be on this for some time. Follow-up with your primary care provider regarding this. Should symptoms return or worsen contact your primary care provider or return to the emergency room. - Discharge Plan *PRESCRIPTION DRUG MONITORING PROGRAM REVIEWED*: No *COPY OF PRESCRIPTION DRUG MONITORING REPORT IN PATIENT RUTHIE: No Prescriptions/Med Rec: Rivaroxaban [Xarelto] 15 mg PO BID #41 tab Rivaroxaban [Xarelto] 20 mg PO DAILY #20 tablet Home Medications: Home Meds Rivaroxaban [Xarelto] 15 mg PO BID #41 tab 03/11/21 [Rx] Rivaroxaban [Xarelto] 20 mg PO DAILY #20 tablet 03/11/21 [Rx] Oxygen Therapy Mode: Room Air Patient Handouts: Rivaroxaban oral tablets, Pulmonary Embolism, Deep Vein Thrombosis, Venous Thromboembolism Prevention Forms: ED Department Discharge Referrals: Jose Jaeger MD [Primary Care Provider] - 03/17/21 8:40 am (This is your check in time. please bring insurance cards and photo ID ) - Discharge Summary/Plan Comment DC Time >30 min.: No Total # of Minutes for Discharge Time: 25 - General Info Date of Service: 03/11/21 Admission Dx/Problem (Free Text: Admission Diagnosis/Problem Admission Diagnosis/Problem Pulmonary embolism Functional Status: Reports: Pain Controlled, Tolerating Diet, Ambulating, Urinating. Denies: New Symptoms - Review of Systems General: Reports: No Symptoms. Denies: Fever, Weakness, Fatigue, Malaise, Chills HEENT: Reports: No Symptoms. Denies: Headaches, Sore Throat Pulmonary: Reports: No Symptoms. Denies: Shortness of Breath, Cough, Sputum, Wheezing Cardiovascular: Reports: Edema (left leg). Denies: Chest Pain, Palpitations, Dyspnea on Exertion Gastrointestinal: Reports: No Symptoms. Denies: Abdominal Pain, Constipation, Diarrhea, Nausea, Vomiting Genitourinary: Reports: No Symptoms. Denies: Pain Musculoskeletal: Reports: No Symptoms Skin: Reports: No Symptoms. Denies: Cyanosis Neurological: Reports: No Symptoms. Denies: Confusion, Dizziness, Headache, Numbness, Pre-Existing Deficit, Tingling, Difficulty Walking, Weakness, Gait Disturbance Psychiatric: Reports: No Symptoms - Patient Data Vitals - Most Recent: Last Vital Signs Temp 98.1 F 03/11/21 08:04 Pulse 76 03/11/21 08:04 Resp 14 03/11/21 08:04 BP 124/77 03/11/21 08:04 Pulse Ox 95 03/11/21 08:04 Weight - Most Recent: 285 lb 4.8 oz I&O - Last 24 hours: Intake & Output 03/10/21 03/11/21 03/11/21 22:59 06:59 14:59 Intake Total 515 175 Balance 515 175 Lab Results - Last 24 hrs: Laboratory Results - last 24 hr 03/11/21 03/11/21 Range/Units 05:17 05:17 WBC 8.03 (4.23-9.07) K/mm3 RBC 4.11 L (4.63-6.08) M/mm3 Hgb 11.6 L D (13.7-17.5) gm/dl Hct 35.4 L (40.1-51.0) % MCV 86.1 (79.0-92.2) fl MCH 28.2 (25.7-32.2) pg MCHC 32.8 (32.2-35.5) g/dl RDW Std Deviation 39.1 (35.1-43.9) fL Plt Count 320 (163-337) K/mm3 MPV 9.4 (9.4-12.3) fl Neut % (Auto) 69.1 H (34.0-67.9) % Lymph % (Auto) 17.6 L (21.8-53.1) % [place]ombs % (Auto) 10.6 (5.3-12.2) % Eos % (Auto) 2.4 (0.8-7.0) Baso % (Auto) 0.2 (0.1-1.2) % Neut # (Auto) 5.55 H (1.78-5.38) K/mm3 Lymph # (Auto) 1.41 (1.32-3.57) K/mm3 [place]bs # (Auto) 0.85 H (0.30-0.82) K/mm3 Eos # (Auto) 0.19 (0.04-0.54) K/mm3 Baso # (Auto) 0.02 (0.01-0.08) K/mm3 Sodium 136 (136-145) mEq/L Potassium 4.4 (3.5-5.1) mEq/L Chloride 101 (98-107) mEq/L Carbon Dioxide 25 (21-32) mEq/L Anion Gap 14.4 (5-15) BUN 15 (7-18) mg/dL Creatinine 1.1 (0.7-1.3) mg/dL Est Cr Clr Drug Dosing 87.77 mL/min Estimated GFR (MDRD) > 60 (>60) mL/min BUN/Creatinine Ratio 13.6 L (14-18) Glucose 119 H (70-99) mg/dL Calcium 8.9 (8.5-10.1) mg/dL Magnesium 2.0 (1.8-2.4) mg/dL Total Bilirubin 0.6 (0.2-1.0) mg/dL AST 20 (15-37) U/L ALT 28 (16-63) U/L Alkaline Phosphatase 88 (46-116) U/L Total Protein 6.6 (6.4-8.2) g/dl Albumin 3.1 L (3.4-5.0) g/dl Globulin 3.5 gm/dL Albumin/Globulin Ratio 0.9 L (1-2) Med Orders - Current: Current Medications Acetaminophen (Acetaminophen 325 Mg Tab) 650 mg PO Q4H PRN PRN Reason: Pain (Mild 1-3)/fever Apixaban (Apixaban 5 Mg Tab) 10 mg PO BID SCOTT Stop: 03/20/21 21:01 Last Admin: 03/11/21 08:06 Dose: 10 mg Documented by: Morphine Sulfate (Morphine 2 Mg/Ml Syringe) 2 mg IVPUSH Q2H PRN PRN Reason: Pain (severe 7-10) Last Admin: 03/10/21 16:20 Dose: 2 mg Documented by: Ondansetron HCl (Ondansetron 4 Mg/2 Ml Sdv) 4 mg IV Q6H PRN PRN Reason: Nausea/Vomiting Oxycodone HCl (Oxycodone 5 Mg Tab) 5 mg PO Q4H PRN PRN Reason: Pain (moderate 4-6) Sodium Chloride (Sodium Chloride 0.9% 10 Ml Syringe) 10 ml FLUSH ASDIRECTED PRN PRN Reason: Keep Vein Open Last Admin: 03/10/21 08:28 Dose: 10 ml Documented by: Sodium Chloride (Sodium Chloride 0.9% 10 Ml Syringe) 10 ml FLUSH ASDIRECTED PRN PRN Reason: Keep Vein Open Last Admin: 03/10/21 08:54 Dose: 10 ml Documented by: Discontinued Medications Aspirin (Aspirin 81 Mg Tab.Chew) 324 mg PO ONETIME ONE Stop: 03/10/21 07:27 Last Admin: 03/10/21 07:32 Dose: 324 mg Documented by: Enoxaparin Sodium (Enoxaparin 120 Mg/0.8 Ml Syringe) 120 mg SUBCUT ONETIME ONE Stop: 03/10/21 08:47 Last Admin: 03/10/21 08:53 Dose: 120 mg Documented by: Enoxaparin Sodium (Enoxaparin 150 Mg/1 Ml Syringe) 130 mg SUBCUT ONETIME ONE Stop: 03/10/21 21:01 Last Admin: 03/10/21 20:10 Dose: 130 mg Documented by: Sodium Chloride (Normal Saline) 100 mls @ 60 mls/hr IV ASDIRECTED SCOTT Last Admin: 03/10/21 08:19 Dose: 60 mls/hr Documented by: Sodium Chloride (Normal Saline) 1,000 mls @ 999 mls/hr IV ONETIME ONE Stop: 03/10/21 09:05 Last Admin: 03/10/21 08:28 Dose: 999 mls/hr Documented by: Iopamidol (Iopamidol 755 Mg/Ml 100 Ml Bottle) 100 ml IVPUSH ONETIME ONE Stop: 03/10/21 08:05 Last Admin: 03/10/21 08:19 Dose: 100 ml Documented by: Morphine Sulfate (Morphine 4 Mg/Ml Syringe) 4 mg IVPUSH ONETIME ONE Stop: 03/10/21 08:47 Last Admin: 03/10/21 08:52 Dose: 4 mg Documented by: Sodium Chloride (Sodium Chloride 0.9% 10 Ml Syringe) 10 ml FLUSH ONETIME ONE Stop: 03/10/21 08:05 Last Admin: 03/10/21 08:19 Dose: 10 ml Documented by: Trazodone HCl (Trazodone 50 Mg Tab) 50 mg PO ONETIME ONE Stop: 03/10/21 20:34 Last Admin: 03/10/21 21:10 Dose: 50 mg Documented by: - Exam Quality Assessment: Reports: DVT Prophylaxis. Denies: Supplemental Oxygen, Urine Catheter General: Reports: Alert, Oriented, Cooperative, No Acute Distress HEENT: Reports: Pupils Equal, Pupils Reactive, Mucous Membr. Moist/[place] Neck: Reports: Supple, Trachea Midline Lungs: Reports: Clear to Auscultation, Normal Respiratory Effort Cardiovascular: Reports: Regular Rate, Regular Rhythm GI/Abdominal Exam: Normal Bowel Sounds, Soft, Non-Tender, No Distention (Male) Exam: Deferred Rectal (Males) Exam: Deferred Back Exam: Reports: Normal Inspection, Full Range of Motion Extremities: Normal Inspection, Normal Range of Motion, Non-Tender, Normal Capillary Refill, Pedal Edema (Left 1-2+ ) Skin: Reports: Warm, Dry, Intact Neurological: Reports: No New Focal Deficit Psy/Mental Status: Reports: Alert, Normal Affect, Normal Mood
== END 2021-03-11 12:32 | disposition home or self-care (01) ==
LOC: JD.ED 07:01 → JD.MS 11:50
PROVIDERS: ADMIT Internal Medicine; ATTEND Internal Medicine
DX: I26.99 Other pulmonary embolism without acute cor pulmonale (principal); I82.402 Acute embolism and thrombosis of unspecified deep veins of left lower extremity; D72.829 Elevated white blood cell count, unspecified; R79.82 Elevated C-reactive protein (CRP); Z20.822 Contact with and (suspected) exposure to COVID-19
CPT/HCPCS: 0240U; 36415; 71045; 71275; 80053; 83735; 84145; 84484; 85025; 85379; 85610; 86140; 93005; 93306; 93971; 94760; 94762; A9270; J1650; J2270; J7030; Q9967; 96372; 96374; 96376; 99285-25; G0378

== ENCOUNTER 2021-03-11 15:32 | Emergency (ER) | payer BC ==
[2021-03-11] MEDS ORDERED: Sodium Chloride 0.9% 10 ML Syringe FLUSH PRN (16:04)
[2021-03-11] MEDS ORDERED: HYDROmorphone 1 MG/ML Syringe IM ONE (16:30)
--- NOTE | 2021-03-11 17:38 | EDM.PDOC ---
ED HPI GENERAL MEDICAL PROBLEM - General Chief Complaint: Chest Pain Stated Complaint: CHEST PAIN Time Seen by Provider: 03/11/21 15:47 Source of Information: Reports: Patient, Old Records History Limitations: Reports: No Limitations - History of Present Illness INITIAL COMMENTS - FREE TEXT/NARRATIVE: 55 male presents emergency department with complaints of left sided intermittent stabbing chest discomfort. Patient was discharged from this hospital today with a diagnosis of right-sided PE. Was seen and evaluated in the emergency department yesterday due to right chest pain. Patient was found to have a fairly extensive right lower lung pulmonary emboli on CT scan that was completed yesterday in the emergency department. Patient was subsequently admitted to the hospital for observation and started on Xarelto for the treatment of PE. He states that he was discharged home and was home for maybe an hour when he developed the right-sided chest discomfort that he had complained of yesterday. Denies any increasing or worsening shortness of breath. Denies any radiation to his left chest or jaw. He denies any syncope or near syncope. Chest Pain Score (Numeric/FACES): 8 - Related Data Allergies Allergy/AdvReac Type Severity Reaction Status Date / Time No Known Allergies Allergy Verified 03/11/21 15:51 Home Meds: Home Meds Hydrocodone/Acetaminophen [HYDROcodone-Acetaminophen 5-325 MG] 1 each PO Q4H PRN #20 tab 03/11/21 [Rx] Rivaroxaban [Xarelto] 15 mg PO BID #41 tab 03/11/21 [Rx] Rivaroxaban [Xarelto] 20 mg PO DAILY #20 tablet 03/11/21 [Rx] Past Medical History - Past Health History Medical/Surgical History: Denies Medical/Surgical History HEENT History: Reports: Impaired Vision Other HEENT History: wear glasses/contacts Cardiovascular History: Reports: Blood Clots/VTE/DVT Musculoskeletal History: Reports: Arthritis, Other (See Below) Other Musculoskeletal History: 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 Hematologic History: Reports: Blood Transfusion(s) Dermatologic History: Reports: Eczema - Infectious Disease History Infectious Disease History: Reports: Chicken Pox, Novel Coronavirus - Past Surgical History HEENT Surgical History: Reports: None Musculoskeletal Surgical History: Reports: Knee Replacement Social & Family History - Family History Family Medical History: No Pertinent Family History - Tobacco Use Tobacco Use Status *Q: Never Tobacco User Second Hand Smoke Exposure: No - Caffeine Use Caffeine Use: Reports: Coffee - Recreational Drug Use Recreational Drug Use: No ED ROS GENERAL - Review of Systems Review Of Systems: Comprehensive ROS is negative, except as noted in HPI. ED EXAM, GENERAL - Physical Exam Exam: See Below Exam Limited By: No Limitations General Appearance: Alert, WD/WN, Mild Distress Ears: Normal External Exam, Hearing Grossly Normal Nose: Normal Inspection Throat/Mouth: Normal Inspection, Normal Lips, Normal Voice, No Airway Compromise Head: Atraumatic Neck: Normal Inspection, Supple Respiratory/Chest: No Respiratory Distress, Lungs Clear, Normal Breath Sounds, No Accessory Muscle Use, Chest Non-Tender Cardiovascular: Normal Peripheral Pulses, Regular Rate, Rhythm, No Edema, No Murmur Peripheral Pulses: 2+: Radial (L), Radial (R) GI/Abdominal: Normal Bowel Sounds, Soft, Non-Tender, No Distention (Male) Exam: Deferred Rectal (Males) Exam: Deferred Back Exam: Normal Inspection Extremities: Normal Inspection Neurological: Alert, Oriented, Normal Cognition Psychiatric: Normal Affect, Normal Mood Skin Exam: Warm, Dry, Intact, Normal Color, No Rash Lymphatic: No Adenopathy #1 Interpretation EKG Date: 03/11/21 Time: 15:43 Rhythm: NSR Rate (Beats/Min): 88 Golden: Normal P-Wave: Present QRS: Normal ST-T: Normal QT: Normal EKG Interpretation Comments: Per Dr. Pederson interpretation: Sinus rhythm at 88 bpm; Course - Vital Signs Text/Narrative:: Upon physical exam, the patient's blood pressure is slightly elevated at 141/91 and his O2 saturations are 93% on room air. He at times does wince in pain and grasps that his right chest area upon evaluation. Physical exam is otherwise unremarkable. I do not feel that there is any further need to do lab studies or radiology studies as patient was just discharged from the hospital today. I will give him 1 shot of Dilaudid IM. And reevaluate. Last Recorded V/S: Last Vital Signs Temp 98.1 F 03/11/21 15:49 Pulse 87 03/11/21 15:49 Resp 20 03/11/21 15:49 BP 141/91 H 03/11/21 15:49 Pulse Ox 93 L 03/11/21 15:49 - Orders/Labs/Meds Meds: Medications Discontinued Medications Generic Name Dose Route Start Last Admin Trade Name Kennyq PRN Reason Stop Dose Admin Hydromorphone HCl 1 mg 03/11/21 16:30 03/11/21 16:47 Hydromorphone 1 Mg/Ml Syringe IM 03/11/21 16:31 1 mg ONETIME ONE Administration Sodium Chloride 10 ml 03/11/21 16:04 Sodium Chloride 0.9% 10 Ml Syringe FLUSH ASDIRECTED PRN Keep Vein Open - Re-Assessments/Exams Free Text/Narrative Re-Assessment/Exam: 03/11/21 17:42 Patient states that Dilaudid has helped his chest discomfort significantly. He states that it has completely resolved. Patient will be discharged home with a prescription for hydrocodone to be taken 1 tab every 4 hours as needed for more severe discomfort. He does have a follow-up appointment scheduled with Jose Jaeger at [facility] on Wednesday, March 17, 2021. He has been given strong return precautions. Departure - Departure Time of Disposition: 17:33 Disposition: Home, Self-Care 01 Condition: Good Clinical Impression: Atypical chest pain Prescriptions: Hydrocodone/Acetaminophen [HYDROcodone-Acetaminophen 5-325 MG] 1 each PO Q4H PRN #20 tab PRN Reason: Pain (Moderate 4-6) Referrals: PCP,None [Primary Care Provider] - Jose Jaeger MD [Physician] - Forms: ED Department Discharge Additional Instructions: You were seen in the emergency department today due to right-sided chest pain from pulmonary embolism. Due to the fact that you are just discharged from the hospital or your today, I did not feel that any further labs or radiology studies were warranted. You did receive a narcotic medication called Dilaudid while in the emergency department and this did seem to help your chest discomfort. I have sent a prescription to your pharmacy for narcotic pain medication called hydrocodone. You may take 1 tab every 4 hours as needed for more severe pain. May take Tylenol 650 mg every 4 hours as needed for lesser pain. As discussed, hydrocodone does have Tylenol in it so take 1 or the other. You do not want to consume more than 4000 mg of Tylenol in 24 hours. Should your condition worsen or change, do not hesitate returning to the emergency department. Sepsis Event Note (ED) - Focused Exam Vital Signs: Vital Signs Temp Pulse Resp BP Pulse Ox 03/11/21 15:49 98.1 F 87 20 141/91 H 93 L
== END 2021-03-11 17:50 | disposition home or self-care (01) ==
LOC: JD.ED 15:32
DX: R07.89 Other chest pain (principal); Z86.718 Personal history of other venous thrombosis and embolism; Z79.01 Long term (current) use of anticoagulants
CPT/HCPCS: 96372; 99285; J1170

== ENCOUNTER 2022-10-01 07:27 | Day surgery (SDC) | payer BC ==
[~2022-10-01 07:27] MED LIST: Lactated Ringers 1,000 ML IV SCH; Sodium Chloride 0.9% 10 ML Syringe FLUSH PRN; Sodium Chloride 0.9% 10 ML Syringe FLUSH SCH
[2022-10-01] MEDS ORDERED: Lidocaine 1% 2 ML ONE (07:36)
[2022-10-01] MEDS ORDERED: fentaNYL 100 MCG/2 ML SDV ONE (07:37)
[2022-10-01] MEDS ORDERED: Midazolam 1 MG/ML 2 ML SDV ONE (07:37)
[2022-10-01] MEDS ORDERED: Propofol 200 MG/20 ML SDV ONE (07:37)
== END 2022-10-01 09:50 | disposition home or self-care (01) ==
LOC: JD.SDS 07:27
PROVIDERS: ATTEND Surgery
DX: Z12.11 Encounter for screening for malignant neoplasm of colon (principal); D12.0 Benign neoplasm of cecum; E78.5 Hyperlipidemia, unspecified; M19.90 Unspecified osteoarthritis, unspecified site; Z79.01 Long term (current) use of anticoagulants; Z79.899 Other long term (current) drug therapy; Z79.2 Long term (current) use of antibiotics; Z86.711 Personal history of pulmonary embolism; Z86.718 Personal history of other venous thrombosis and embolism
CPT/HCPCS: 45385; J2250; J2704; J3010; J7120; J3490